=== PATIENT | male | born 1955 | race Caucasian/White ===

== ENCOUNTER 2016-12-26 13:12 | Inpatient (IN) | payer BC, OTHER ==
[~2016-12-26] VITALS: Ht 177.8 cm; Wt 115.9 kg
[~2016-12-26 13:12] MED LIST: ASPI-482 PO; ATOR10TA PO; CHOL100013 PO; FENO145T2 PO; LEVO500T59 PO; METR500T PO; OMEG10006 PO; TEMA15CA PO
[2016-12-26 14:01] LABS: BASO % 1 % (0-3); EOS % 2 % (0-3); HEMATOCRIT 48.5 % (39.0-53.0); HEMOGLOBIN 16.8 g/dL (13.0-17.5); LYMPH # 1.8 x10^3/uL (1.0-4.8); LYMPH % 34 % (24-48); MEAN CORPUSCULAR HEMOGLOBIN 33 pg (25-35); MEAN CORPUSCULAR HGB CONC 35 g/dL (31-37); MEAN CORPUSCULAR VOLUME 94 fL (79-100); MONO % 11 % (0-9); NEUT % 52 % (31-73); PLATELET COUNT 131 x10^3/uL (140-400); RED BLOOD COUNT 5.17 x10^6/uL (4.30-5.70); RED CELL DISTRIBUTION WIDTH 12.2 % (11.5-14.5); WHITE BLOOD COUNT 5.2 x10^3/uL (4.0-11.0)
--- NOTE | 2016-12-26 14:04 | RAD ---
Portable chest, 12/26/2016: History: High blood pressure, lightheadedness Comparison is made to a study from 10/09/2014. The heart size and pulmonary vascularity are normal. There is mild tortuosity of the thoracic aorta. A calcified granuloma is present in the right upper lobe. No acute infiltrates are seen. There is no evidence of pleural fluid. Mild spurring is present in the spine. IMPRESSION: No acute cardiopulmonary abnormality is detected.
[2016-12-26 14:13] LABS: CALCIUM 8.8 mg/dL (8.5-10.1); CREATININE 0.9 mg/dL (0.7-1.3); GFR 86.4
[2016-12-26 14:19] LABS: ALBUMIN/GLOBULIN RATIO 1.3 (1.0-1.7); TOTAL BILIRUBIN 0.7 mg/dL (0.2-1.0)
--- NOTE | 2016-12-26 14:46 | RAD ---
Head CT without contrast 12/26/2016 at 1405 hours Indication: Headache, hypertension Comparison: 02/19/[address] Technique: Multiple axial CT images of the head were obtained from the skull base through the vertex without intravenous contrast. Findings: The ventricles, sulci and basal cisterns are normal. Padilla-white matter differentiation is preserved. There is no mass, mass effect or midline shift. No evidence for acute intracranial hemorrhage. Senescent calcifications are noted in the basal ganglia bilaterally. Visualized orbits are normal. Calvarium and scalp appear normal. Paranasal sinuses and mastoid air cells are well aerated. Impression: No acute intracranial abnormalities identified. PQRS Compliance Statement: One or more of the following individualized dose reduction techniques were utilized for this examination: 1. Automated exposure control 2. Adjustment of the mA and/or kV according to patient size 3. Use of iterative reconstruction technique
[2016-12-26] MEDS ORDERED: ACETAMINOPHEN 325 MG TABLET. PO PRN (15:30)
[2016-12-26] MEDS ORDERED: NITROGLYCERIN SUBLINGUAL 0.4 MG BOTTLE OF 25. SL PRN (15:30)
[2016-12-26] MEDS ORDERED: ONDANSETRON PF 4 MG/2 ML VIAL. IV PRN (15:30)
--- NOTE | 2016-12-26 15:47 | EKG ---
[facility] [address] [place] [address] Test Date: 2016-12-26 Test Time: 13:17:19 Pat Name: RHEA OLGUIN Department: Room: Gender: M Rn Primary Care: : 1955 Requested By: ETHAN DUPONT Order Number: [id number] Reading MD: Estelita Sandoval Measurements Intervals [place] Rate: 84 P: 27 TN: 170 QRS: -32 QRSD: 94 T: 28 QT: 356 QTc: 424 Interpretive Statements SINUS RHYTHM NORMAL EKG Electronically Signed On 12-29-2016 21:26:01 CDT by Estelita Sandoval
[2016-12-26 16:08] LABS: BILIRUBIN,URINE NEGATIVE (NEG); GLUCOSE,URINE NEGATIVE (NEG); NITRITE,URINE NEGATIVE (NEG); PH,URINE 7.5; PROTEIN,URINE NEGATIVE (NEG-TRACE); UROBILINOGEN,URINE 0.2 mg/dL (0.2 mg/dL)
[2016-12-26 16:15] LABS: BARBITURATES NEG (NEG); BENZODIAZEPINES POS (NEG); CANNABINOIDS NEG (NEG); COCAINE NEG (NEG); METHADONE NEG (NEG); OPIATES NEG (NEG); PHENCYCLIDINE NEG (NEG)
[2016-12-26 16:19] LABS: BACTERIA,URINE 0 /HPF (0-FEW); RBC,URINE 0 /HPF (0-2); SQUAMOUS EPITHELIAL CELL,UR OCC /LPF; WBC,URINE 0 /HPF (0-4)
[2016-12-26 16:47] VITALS: BP 151/79
--- NOTE | 2016-12-26 17:36 | ED.ADGEN ---
Past Medical History Past Medical History: Anxiety, High Cholesterol Past Surgical History: Knee Replacement, Other Additional Past Surgical Histo: umbilical hernia Alcohol Use: Occasionally Drug Use: Other Social History Narrative: former Adult General Chief Complaint Chief Complaint: HYPERTENSION HPI HPI Patient is a 61 year old and, history of hypercholesterolemia, anxiety, bilateral knee replacements, who presents to the emergency department with a complaint of near syncope, associated with shortness of breath, and lightheadedness over the past several days. Patient denies any focal weakness, numbness or tingling, no vision changes, states that he felt as though he was "could've passed out", yesterday, has felt lightheaded and had some vertiginous type symptoms today. No ear pain, upper respiratory symptoms, states that he has not experienced palpitations or chest pain, but has experienced shooting pain in his left arm, associated with diaphoresis, and a feeling of shortness of breath associated with these other symptoms. Currently is not experiencing any symptoms. He denies any recent travel or surgery, history of DVT or PE, has not previously had cardiac evaluation. Patient states there is a family history of cardiac disease in his father and uncle. Patient states that he presented to an urgent care center today, and was sent to the ED for additional evaluation based on his complaints, and a blood pressure was elevated, 170s over 80s. Currently blood pressure is 170/91, heart rate is in the 80s, oxygen saturation is 99% on room air, respiratory rate is 20 and unlabored. Review of Systems Review of Systems Constitutional: Denies fever or chills. [] Eyes: Denies change in visual acuity. [] HENT: Denies nasal congestion or sore throat. [] Respiratory: Denies cough, complaining of shortness of breath associated with diaphoresis, and lightheadedness. Cardiovascular: Denies chest pain or edema. [] GI: Denies abdominal pain, nausea, vomiting, bloody stools or diarrhea. [] : Denies dysuria. [] Musculoskeletal: Denies back pain or joint pain, complaining of pain in left arm Integument: Denies rash. [] Neurologic: Denies headache, focal weakness or sensory changes. [] Endocrine: Denies polyuria or polydipsia. [] Lymphatic: Denies swollen glands. [] Psychiatric: Denies depression or anxiety. [] Allergies Allergies Allergies Coded Allergies Type Severity Reaction Last Updated Verified No Known Drug Allergies 04/16/14 No Physical Exam Physical Exam Constitutional: Well developed, well nourished, no acute distress, non-toxic appearance. [] HENT: Normocephalic, atraumatic, bilateral external ears normal, oropharynx moist, no oral exudates, nose normal. [] Eyes: PERRLA, EOMI, conjunctiva normal, no discharge. [] Neck: Normal range of motion, no tenderness, supple, no stridor. [] Cardiovascular:Heart rate regular rhythm, no murmur, S1, S2, no rubs or gallops. [] Lungs & Thorax: Bilateral breath sounds clear to auscultation, no wheezing, rhonchi, rales. No chest wall crepitus or tenderness. [] Abdomen: Bowel sounds normal, soft, no tenderness, no rebound, rigidity, no guarding, no masses, no pulsatile masses. [] Skin: Warm, dry, no erythema, no rash. [] Back: No tenderness, no CVA tenderness. [] Extremities: No tenderness, no cyanosis, no clubbing, ROM intact, no edema. Negative Homans sign. [] Neurologic: Alert and oriented X 3, normal motor function, normal sensory function, no focal deficits noted. [] Psychologic: Affect normal, judgement normal, mood normal. [] Current Patient Data Vital Signs Vital Signs Date Time Temp Pulse Resp B/P (MAP) Pulse Ox O2 Delivery O2 Flow Rate FiO2 12/26/16 14:00 80 20 182/83 (116) 97 Room Air 12/26/16 13:26 97.7 97.7 Lab Values Laboratory Tests Test 12/26/16 13:51 White Blood Count 5.2 x10^3/uL (4.0-11.0) Red Blood Count 5.17 x10^6/uL (4.30-5.70) Hemoglobin 16.8 g/dL (13.0-17.5) Hematocrit 48.5 % (39.0-53.0) Mean Corpuscular Volume 94 fL (79-100) Mean Corpuscular Hemoglobin 33 pg (25-35) Mean Corpuscular Hemoglobin Concent 35 g/dL (31-37) Red Cell Distribution Width 12.2 % (11.5-14.5) Platelet Count 131 x10^3/uL (140-400) L Neutrophils (%) (Auto) 52 % (31-73) Lymphocytes (%) (Auto) 34 % (24-48) Monocytes (%) (Auto) 11 % (0-9) H Eosinophils (%) (Auto) 2 % (0-3) Basophils (%) (Auto) 1 % (0-3) Neutrophils # (Auto) 2.7 x10^3uL (1.8-7.7) Lymphocytes # (Auto) 1.8 x10^3/uL (1.0-4.8) Monocytes # (Auto) 0.6 x10^3/uL (0.0-1.1) Eosinophils # (Auto) 0.1 x10^3/uL (0.0-0.7) Basophils # (Auto) 0.0 x10^3/uL (0.0-0.2) Sodium Level 140 mmol/L (136-145) Potassium Level 4.0 mmol/L (3.5-5.1) Chloride Level 103 mmol/L (98-107) Carbon Dioxide Level 26 mmol/L (21-32) Anion Gap 11 (6-14) Blood Urea Nitrogen 14 mg/dL (8-26) Creatinine 0.9 mg/dL (0.7-1.3) Estimated GFR (Cockcroft-Gault) 86.4 BUN/Creatinine Ratio 16 (6-20) Glucose Level 97 mg/dL (70-99) Calcium Level 8.8 mg/dL (8.5-10.1) Total Bilirubin 0.7 mg/dL (0.2-1.0) Aspartate Amino Transferase (AST) 36 U/L (15-37) Alanine Aminotransferase (ALT) 50 U/L (16-63) Alkaline Phosphatase 72 U/L (46-116) Troponin I Quantitative < 0.017 ng/mL (0.000-0.055) FL-Yno-D-Type Natriuretic Peptide 104 pg/mL (0-124) Total Protein 7.0 g/dL (6.4-8.2) Albumin 4.0 g/dL (3.4-5.0) Albumin/Globulin Ratio 1.3 (1.0-1.7) Laboratory Tests 12/26/16 13:51 Laboratory Tests 12/26/16 13:51 EKG EKG EC: Sinus rhythm, left axis deviation, QTC of 424, AL 170, QR is a 94, contour normality is noted in the inferior leads, no ST elevation or depression , mild baseline artifact noted. Abnormal ECG, does not meet STEMI criteria. As interpreted by me. [] Radiology/Procedures Radiology/Procedures [][facility] [address] [place] [address] IMAGING REPORT Signed PATIENT: RHEA OLGUIN ACCOUNT: [id number] : 1955 LOCATION: ER AGE: 61 SEX: M EXAM STATUS: REG ER ORD. PHYSICIAN: ETHAN DUPONT DO REASON: HTN PROCEDURE: PORTABLE CHEST 1V Portable chest, 12/26/2016: History: High blood pressure, lightheadedness Comparison is made to a study from 10/09/2014. The heart size and pulmonary vascularity are normal. There is mild tortuosity of the thoracic aorta. A calcified granuloma is present in the right upper lobe. No acute infiltrates are seen. There is no evidence of pleural fluid. Mild spurring is present in the spine. IMPRESSION: No acute cardiopulmonary abnormality is detected. DICTATED and SIGNED BY: LIZETTE MENCHACA MD DATE: 12/26/16 1401 CC: ETHAN DUPONT DO; CELESTINA THOMASON DO ~ Course & Med Decision Making Course & Med Decision Making Pertinent Labs and Imaging studies reviewed. (See chart for details) Patient with nonfocal neurologic examination, CT of the head obtained based on his complaints of disequilibrium, and lightheadedness. CT of the head was unremarkable, as was chest x-ray, ECG revealed contour normality is in the inferior leads, initial troponin was negative. I did discuss these findings and patient, was relieved. Blood pressure remains mildly elevated the emergency department, at this point is 150s over 80s. Patient denies any palpitations or other symptoms. Her main concern for possible atypical presentation of ACS. He is agreeable with plan for admission hospital for continued evaluation, findings as above discussed with Dr. Murray of internal medicine, patient accepted to her service as a full admission to the medical telemetry floor, with consultation placed for cardiology, bridge orders entered per discussion. Dragon Disclaimer Dragon Disclaimer This electronic medical record was generated, in whole or in part, using a voice recognition dictation system. Departure Impression: Primary Impression: Near syncope Disposition: 09 ADMITTED INPATIENT Admitting Physician: Other Condition: IMPROVED ETHAN DUPONT DO Dec 26, 2016 17:36
[2016-12-26] MEDS ORDERED: DIAZ10TA2 PO (18:31)
[2016-12-26] MEDS ORDERED: ATOR20TA58 PO (18:31)
[2016-12-26] MEDS ORDERED: TEMA30CA PO (18:31)
--- NOTE | 2016-12-26 19:26 | PDOC1 ---
History and Physical Date of Admission Date of Admission DATE: 12/26/16 TIME: 1700 Identification/Chief Complaint Chief Complaint Near syncope Hypertensive urgency Problems: Source Source: Patient History of Present Illness History of Present Illness Mr Toussaint is a 61 y/o man with minor medical problems, who presents to the ER with episodes feeling choked, unable to breath with associated near syncope/ lightheadedness over the past couple of days. He relates that she was close to passing out yesterday, and same symptoms occurred today. Patient denies any focal weakness, numbness or tingling, or vision changes, ear pain, or upper respiratory symptoms. He denies chest pain but pressure in his lower chest just left to the sternum as well as brief shooting pain in his left arm, associated with diaphoresis, along with the near syncopal episodes and SOB. Symptoms lasted only briefly, but general unwellness, "something wrong" is persisting. He denies any recent travel or surgery, history of DVT or PE, has not previously had cardiac evaluation. Patient states there is a family history of cardiac disease in his father and uncle. Has been diagnosed with anxiety and prior panic attacks, different from current events. Patient states that he presented to an urgent care center today, and was sent to the ED for additional evaluation based on his complaints, and a blood pressure was elevated, 170s over 80s. Currently blood pressure is 170/91, heart rate is in the 80s, oxygen saturation is 99% on room air, respiratory rate is 20 and unlabored. Past Medical History Cardiovascular: HTN, Hyperlipidemia GI: Diverticulosis Psych: Anxiety Musculoskeletal: Osteoarthritis (s/p bilat TKR) Past Surgical History Past Surgical History: Total knee replacement Family History Family History: No Significant Social History Smoke: Quit (30 yrs ago; 5 p/y hx) ALCOHOL: occassional Drugs: None Current Problem List Problem List Problems Medical Problems: (1) Near syncope Status: Acute Problems: Current Medications Current Medications Active Scripts Active Reported Valium (Diazepam) 10 Mg Tablet 10 Mg PO BID PRN Temazepam 30 Mg Capsule 30 Mg PO HS PRN Atorvastatin Calcium 20 Mg Tablet 20 Mg PO HS Pv Fish Oil 1,000 Mg Softgel ([place]-3 Fatty Acids/Vitamin E) 1,000 Mg Capsule 1 Cap PO BID Vitamin D (Cholecalciferol (Vitamin D3)) 1,000 Unit Capsule 1 Cap PO DAILY Aspir 81 (Aspirin) 81 Mg Tablet. 1 Tab PO DAILY Fenofibrate (Fenofibrate Nanocrystallized) 145 Mg Tablet 1 Tab PO DAILY Allergies Allergies: Coded Allergies: No Known Drug Allergies (Unverified , 04/16/14) ROS Review of System positive as per HPI. He denies symptoms in rest of organ system review Physical Exam General: Alert, Oriented X3, Cooperative, No acute distress HEENT: EOMI Lungs: Clear to auscultation Heart: RRR, no murmurs Abdomen: Normal bowel sounds, Soft, Other (massively obese) Extremities: No clubbing, No cyanosis, No edema Skin: No rashes Neuro: Normal speech Psych/Mental Status: Mood NL Vitals Vitals Vital Signs Date Time Temp Pulse Resp B/P (MAP) Pulse Ox O2 Delivery O2 Flow Rate FiO2 12/26/16 16:47 98.1 73 18 151/79 (103) 95 Room Air 98.1 Labs Labs Laboratory Tests Test 12/26/16 13:51 12/26/16 15:55 White Blood Count 5.2 x10^3/uL (4.0-11.0) Red Blood Count 5.17 x10^6/uL (4.30-5.70) Hemoglobin 16.8 g/dL (13.0-17.5) Hematocrit 48.5 % (39.0-53.0) Mean Corpuscular Volume 94 fL (79-100) Mean Corpuscular Hemoglobin 33 pg (25-35) Mean Corpuscular Hemoglobin Concent 35 g/dL (31-37) Red Cell Distribution Width 12.2 % (11.5-14.5) Platelet Count 131 x10^3/uL (140-400) Neutrophils (%) (Auto) 52 % (31-73) Lymphocytes (%) (Auto) 34 % (24-48) Monocytes (%) (Auto) 11 % (0-9) Eosinophils (%) (Auto) 2 % (0-3) Basophils (%) (Auto) 1 % (0-3) Neutrophils # (Auto) 2.7 x10^3uL (1.8-7.7) Lymphocytes # (Auto) 1.8 x10^3/uL (1.0-4.8) Monocytes # (Auto) 0.6 x10^3/uL (0.0-1.1) Eosinophils # (Auto) 0.1 x10^3/uL (0.0-0.7) Basophils # (Auto) 0.0 x10^3/uL (0.0-0.2) Sodium Level 140 mmol/L (136-145) Potassium Level 4.0 mmol/L (3.5-5.1) Chloride Level 103 mmol/L (98-107) Carbon Dioxide Level 26 mmol/L (21-32) Anion Gap 11 (6-14) Blood Urea Nitrogen 14 mg/dL (8-26) Creatinine 0.9 mg/dL (0.7-1.3) Estimated GFR (Cockcroft-Gault) 86.4 BUN/Creatinine Ratio 16 (6-20) Glucose Level 97 mg/dL (70-99) Calcium Level 8.8 mg/dL (8.5-10.1) Total Bilirubin 0.7 mg/dL (0.2-1.0) Aspartate Amino Transf (AST/SGOT) 36 U/L (15-37) Alanine Aminotransferase (ALT/SGPT) 50 U/L (16-63) Alkaline Phosphatase 72 U/L (46-116) Troponin I Quantitative < 0.017 ng/mL (0.000-0.055) QE-Fwl-K-Type Natriuretic Peptide 104 pg/mL (0-124) Total Protein 7.0 g/dL (6.4-8.2) Albumin 4.0 g/dL (3.4-5.0) Albumin/Globulin Ratio 1.3 (1.0-1.7) Urine Color Yellow Urine Clarity Clear Urine pH 7.5 Urine Specific [place] <=1.005 Urine Protein Negative mg/dL (NEG-TRACE) Urine Glucose (UA) Negative mg/dL (NEG) Urine Ketones (Stick) Negative mg/dL (NEG) Urine Blood Negative (NEG) Urine Nitrite Negative (NEG) Urine Bilirubin Negative (NEG) Urine Urobilinogen Dipstick 0.2 mg/dL (0.2 mg/dL) Urine Leukocyte Esterase Negative (NEG) Urine RBC 0 /HPF (0-2) Urine WBC 0 /HPF (0-4) Urine Squamous Epithelial Cells Occ /LPF Urine Bacteria 0 /HPF (0-FEW) Urine Opiates Screen Neg (NEG) Urine Methadone Screen Neg (NEG) Urine Barbiturates Neg (NEG) Urine Phencyclidine Screen Neg (NEG) Urine Amphetamine/Methamphetamine Neg (NEG) Urine Benzodiazepines Screen Pos (NEG) Urine Cocaine Screen Neg (NEG) Urine Cannabinoids Screen Neg (NEG) Urine Ethyl Alcohol Neg (NEG) Laboratory Tests Test 12/26/16 13:51 12/26/16 15:55 White Blood Count 5.2 x10^3/uL (4.0-11.0) Red Blood Count 5.17 x10^6/uL (4.30-5.70) Hemoglobin 16.8 g/dL (13.0-17.5) Hematocrit 48.5 % (39.0-53.0) Mean Corpuscular Volume 94 fL (79-100) Mean Corpuscular Hemoglobin 33 pg (25-35) Mean Corpuscular Hemoglobin Concent 35 g/dL (31-37) Red Cell Distribution Width 12.2 % (11.5-14.5) Platelet Count 131 x10^3/uL (140-400) Neutrophils (%) (Auto) 52 % (31-73) Lymphocytes (%) (Auto) 34 % (24-48) Monocytes (%) (Auto) 11 % (0-9) Eosinophils (%) (Auto) 2 % (0-3) Basophils (%) (Auto) 1 % (0-3) Neutrophils # (Auto) 2.7 x10^3uL (1.8-7.7) Lymphocytes # (Auto) 1.8 x10^3/uL (1.0-4.8) Monocytes # (Auto) 0.6 x10^3/uL (0.0-1.1) Eosinophils # (Auto) 0.1 x10^3/uL (0.0-0.7) Basophils # (Auto) 0.0 x10^3/uL (0.0-0.2) Sodium Level 140 mmol/L (136-145) Potassium Level 4.0 mmol/L (3.5-5.1) Chloride Level 103 mmol/L (98-107) Carbon Dioxide Level 26 mmol/L (21-32) Anion Gap 11 (6-14) Blood Urea Nitrogen 14 mg/dL (8-26) Creatinine 0.9 mg/dL (0.7-1.3) Estimated GFR (Cockcroft-Gault) 86.4 BUN/Creatinine Ratio 16 (6-20) Glucose Level 97 mg/dL (70-99) Calcium Level 8.8 mg/dL (8.5-10.1) Total Bilirubin 0.7 mg/dL (0.2-1.0) Aspartate Amino Transf (AST/SGOT) 36 U/L (15-37) Alanine Aminotransferase (ALT/SGPT) 50 U/L (16-63) Alkaline Phosphatase 72 U/L (46-116) Troponin I Quantitative < 0.017 ng/mL (0.000-0.055) ZM-Kfj-V-Type Natriuretic Peptide 104 pg/mL (0-124) Total Protein 7.0 g/dL (6.4-8.2) Albumin 4.0 g/dL (3.4-5.0) Albumin/Globulin Ratio 1.3 (1.0-1.7) Urine Color Yellow Urine Clarity Clear Urine pH 7.5 Urine Specific [place] <=1.005 Urine Protein Negative mg/dL (NEG-TRACE) Urine Glucose (UA) Negative mg/dL (NEG) Urine Ketones (Stick) Negative mg/dL (NEG) Urine Blood Negative (NEG) Urine Nitrite Negative (NEG) Urine Bilirubin Negative (NEG) Urine Urobilinogen Dipstick 0.2 mg/dL (0.2 mg/dL) Urine Leukocyte Esterase Negative (NEG) Urine RBC 0 /HPF (0-2) Urine WBC 0 /HPF (0-4) Urine Squamous Epithelial Cells Occ /LPF Urine Bacteria 0 /HPF (0-FEW) Urine Opiates Screen Neg (NEG) Urine Methadone Screen Neg (NEG) Urine Barbiturates Neg (NEG) Urine Phencyclidine Screen Neg (NEG) Urine Amphetamine/Methamphetamine Neg (NEG) Urine Benzodiazepines Screen Pos (NEG) Urine Cocaine Screen Neg (NEG) Urine Cannabinoids Screen Neg (NEG) Urine Ethyl Alcohol Neg (NEG) VTE Prophylaxis Ordered VTE Prophylaxis Devices: No VTE Pharmacological Prophylaxi: Yes Assessment/Plan Assessment/Plan Mr Toussaint is a 61 y/o with several cardiac risk factors who presents with vague symptoms reminiscent of ACS. In addition, his blood pressure today is significantly elevated, which is new for ma. He had been seen by his PCP just 2 weeks ago for annual physical and monitoring of his triglyceridemia, when BP was noted to be sl elevated at 130s/80s. He has been admitted to the [facility] for tele and serial enzymes. echo will be ordered. cardiology consult has been requested as well. For his hypertensive urgency, he will receive metoprolol bis plus hydralazine PRN. will continue his home medications for now. Prophylaxis will be achieved with lovenox and H2 Teagan. ALINA WOODY MD Dec 26, 2016 19:26
[2016-12-26] MEDS ORDERED: TEMAZEPAM 15 MG CAPSULE PO PRN (19:30)
[2016-12-26] MEDS ORDERED: diazePAM 5 MG TABLET PO PRN (19:30)
[2016-12-26] MEDS ORDERED: hydrALAZINE 20 MG/ML VIAL. IVP PRN (19:30)
[2016-12-26 19:59] VITALS: BP 166/92
[2016-12-26] MEDS: OMEGA-3 FATTY ACIDS/FISH OIL 1,000 MG CAPSULE. PO SCH (21:46)
[2016-12-26] MEDS: ATORVASTATIN CALCIUM 20 MG TABLET PO SCH (21:46)
[2016-12-26] MEDS: METOPROLOL TART IMMED RELEASE 25 MG TABLET. PO SCH (21:48)
[2016-12-26] MEDS: ENOXAPARIN 40 MG/0.4 ML SYRINGE. SQ SCH (21:49)
[2016-12-26] MEDS: FAMOTIDINE 20 MG TABLET. PO SCH (21:49)
[2016-12-26 23:10] VITALS: BP 133/83
--- NOTE | 2016-12-26 23:38 | ACF ---
Admission Forms Criteria SYNCOPE Clinical Indications for Admission to Inpatient Care ( Place 'X' for any and all applicable criteria): Admission is indicated for syncope and ANY ONE of the following (1)(2)(3)(4)(5) (6)(7) : [X]I. Inpatient admission required rather than observation care (Also use Syncope: Observation Care Criteria as appropriate) because of ANY ONE of the following: [ ]a) Hemodynamic instability that is severe or persistent [ ]b) Cardiac arrhythmias of immediate concern identified or strongly suspected (eg, needs electrophysiologic study) [ ]c) Acute coronary syndrome identified (Also use Myocardial Infarction or Angina Criteria form ) [ ]d) Structural cardiac disorder (eg, aortic stenosis) suspected as cause that requires immediate correction [ ]e) Respiratory symptoms (eg, dyspnea, tachypnea) that are severe or persistent [ ]f) Neurologic signs or symptoms that are severe or persistent ( eg, stroke, seizures, altered mental status) [ ]g) Severe electrolyte abnormalities requiring inpatient care [ ]h) Supplemental oxygen or respiratory treatment for over 24 hrs that are performable only in acute inpatient setting [ ]i) IV fluid to replace significant ongoing (eg, for over 24 hrs ) losses (>3 L/m2 per day) [ ]j) Continuous intravenous infusion of anticoagulation, platelet inhibitor, vasoactive, or antiarrhythmic medication(15)(16) [ ]k) Pulmonary artery catheter monitoring [ ]l) Temporary pacemaker placement(17) [ ]m) Emergent cardioversion(18) [X]n) Other conditions, treatment or monitoring requiring inpatient admission [ ]II. Suspicion of imminently dangerous cause (eg, rare causes like pericardial tamponade, pulmonary embolism) [ ]III. Syncope causing severe injury requiring hospitalization Extended stay beyond goal length of stay may be needed for(28) [ ]a) Dangerous arrhythmia(15)(23)(27)(29) [ ]b) Myocardial ischemia [ ]c) Seizure disorder [ ]d) Syncope-related injuries The original [employer] content created by [email or web address] has been revised. The portions of the content which have been revised are identified through the use of italic text or in bold, and [employer] has neither reviewed nor approved the modified material. All other unmodified content is copyright [employer]. Please see references footnoted in the original [facility] edition 2016 Admission Criteria Met?: Yes MASOUD AMARO Dec 26, 2016 23:38
[2016-12-27] VITALS (7 sets, daily range): BP systolic 125–149; BP diastolic 79–85
[2016-12-27 01:10] LABS: BASO % 1 % (0-3); EOS % 3 % (0-3); HEMOGLOBIN 16.1 g/dL (13.0-17.5); LYMPH # 1.9 x10^3/uL (1.0-4.8); LYMPH % 38 % (24-48); MEAN CORPUSCULAR HEMOGLOBIN 33 pg (25-35); MEAN CORPUSCULAR HGB CONC 34 g/dL (31-37); MEAN CORPUSCULAR VOLUME 95 fL (79-100); MONO % 11 % (0-9); NEUT % 47 % (31-73); PLATELET COUNT 125 x10^3/uL (140-400); RED BLOOD COUNT 4.96 x10^6/uL (4.30-5.70); RED CELL DISTRIBUTION WIDTH 11.9 % (11.5-14.5)
[2016-12-27 01:23] LABS: CALCIUM 8.3 mg/dL (8.5-10.1); GFR 76.5; POTASSIUM 4.1 mmol/L (3.5-5.1)
--- NOTE | 2016-12-27 09:42 | PDOC2 ---
CARDIAC CONSULT DATE OF CONSULT Date of Consult DATE: 12/27/16 TIME: 09:10 REASON FOR CONSULT Reason for Consult: near syncope REFERRING PHYSICIAN Referring Physician: Cydney SOURCE Source: Chart review, Patient HISTORY OF PRESENT ILLNESS HISTORY OF PRESENT ILLNESS This is a pleasant 61 yo male admitted for complains of dizziness. Reports that in the last few weeks he has been having mild SOA with exertion as well as intermittent feeling of indigestion. 2 days ago while walking he started having some dizziness and Monday almost passing out. He was also having some sensation of vertigo. With this symptoms he started having SOA, diaphoresis. Also having dull achy midsternal CP and also shooting discomfort to his left arm. Also has been having sensation of brief palpitations. Verbalized adequate hydration. Denies any CAD, VTE, recent long distant travels, arrhythmia , CVA, syncope. He has HLP, no antiHTN. No recreational drug use and no tobaccoism. Significant family hx of premature CAD. PAST MEDICAL HISTORY Cardiovascular: Hyperlipidemia Pulmonary: No pertinent hx CENTRAL NERVOUS SYSTEM: Vertigo (Had intermittent in the last 6 months) GI: No pertinent hx Heme/Onc: No pertinent hx Hepatobiliary: No pertinent hx Psych: Anxiety (with intermittent use of beznzodiazepine) Musculoskeletal: Osteoarthritis Rheumatologic: No pertinent hx Infectious disease: No pertinent hx ENT: No pertinent hx Renal/: No pertinent hx Endocrine: No pertinent hx Dermatology: No pertinent hx PAST SURGICAL HISTORY Past Surgical History: Hernia Repair (umbilical), Total knee replacement ( bilateral knee 4 yrs ago preceded by unremarkable stress test per pt. ) FAMILY HISTORY Family History: Coronary Artery Disease (father at 51 and uncle with SCD at 51) SOCIAL HISTORY Smoke: No ALCOHOL: occassional Drugs: None Lives: with Family CURRENT MEDICATIONS CURRENT MEDICATIONS Current Medications Medications (Trade) Dose Ordered Sig/Judy Route PRN Reason Start Time Stop Time Status Last Admin Dose Admin Acetaminophen (Tylenol) 650 mg PRN Q4HRS PRN PO FEVER 12/26/16 15:30 12/27/16 15:29 12/26/16 21:56 Atorvastatin Calcium (Lipitor) 20 mg HS PO 12/26/16 21:00 12/26/16 21:46 Fish Oil (Fish Oil) 1,000 mg BID PO 12/26/16 21:00 12/26/16 21:46 Metoprolol Tartrate (Lopressor) 12.5 mg BID PO 12/26/16 21:00 12/26/16 21:48 Enoxaparin Sodium (Lovenox 40mg Syringe) 40 mg Q24H SQ 12/26/16 21:00 12/26/16 21:49 Famotidine (Pepcid) 20 mg BID PO 12/26/16 21:00 12/26/16 21:49 ALLERGIES ALLERGIES: Coded Allergies: No Known Drug Allergies (Unverified , 04/16/14) ROS Review of System 14 point ROS evaluated with pertinent positives noted per HPI PHYSICAL EXAM General: Alert, Oriented X3, Cooperative, No acute distress HEENT: Atraumatic, Mucous membr. moist/pink Lungs: Clear to auscultation, Normal air movement Heart: Regular rate (SR), Normal S1, Normal S2, Other (VICKI 2/6 systolic murmur) Abdomen: Soft, No tenderness, Other (truncal obseity) Extremities: No cyanosis, No edema Skin: No breakdown, No significant lesion Neuro: Normal speech, Sensation intact Psych/Mental Status: Mental status NL, Mood NL MUSCULOSKELETAL: Osteoarthritic changes both hands VITALS VITALS Vital Signs Date Time Temp Pulse Resp B/P (MAP) Pulse Ox O2 Delivery O2 Flow Rate FiO2 12/27/16 08:46 75 138/79 (98) 12/27/16 07:00 97.8 18 98 Room Air 97.8 LABS Lab: Laboratory Tests Test 12/26/16 13:51 12/26/16 15:55 12/26/16 19:00 12/27/16 01:00 White Blood Count 5.2 x10^3/uL (4.0-11.0) 5.0 x10^3/uL (4.0-11.0) Red Blood Count 5.17 x10^6/uL (4.30-5.70) 4.96 x10^6/uL (4.30-5.70) Hemoglobin 16.8 g/dL (13.0-17.5) 16.1 g/dL (13.0-17.5) Hematocrit 48.5 % (39.0-53.0) 47.0 % (39.0-53.0) Mean Corpuscular Volume 94 fL (79-100) 95 fL (79-100) Mean Corpuscular Hemoglobin 33 pg (25-35) 33 pg (25-35) Mean Corpuscular Hemoglobin Concent 35 g/dL (31-37) 34 g/dL (31-37) Red Cell Distribution Width 12.2 % (11.5-14.5) 11.9 % (11.5-14.5) Platelet Count 131 x10^3/uL (140-400) 125 x10^3/uL (140-400) Neutrophils (%) (Auto) 52 % (31-73) 47 % (31-73) Lymphocytes (%) (Auto) 34 % (24-48) 38 % (24-48) Monocytes (%) (Auto) 11 % (0-9) 11 % (0-9) Eosinophils (%) (Auto) 2 % (0-3) 3 % (0-3) Basophils (%) (Auto) 1 % (0-3) 1 % (0-3) Neutrophils # (Auto) 2.7 x10^3uL (1.8-7.7) 2.4 x10^3uL (1.8-7.7) Lymphocytes # (Auto) 1.8 x10^3/uL (1.0-4.8) 1.9 x10^3/uL (1.0-4.8) Monocytes # (Auto) 0.6 x10^3/uL (0.0-1.1) 0.6 x10^3/uL (0.0-1.1) Eosinophils # (Auto) 0.1 x10^3/uL (0.0-0.7) 0.1 x10^3/uL (0.0-0.7) Basophils # (Auto) 0.0 x10^3/uL (0.0-0.2) 0.0 x10^3/uL (0.0-0.2) Sodium Level 140 mmol/L (136-145) 138 mmol/L (136-145) Potassium Level 4.0 mmol/L (3.5-5.1) 4.1 mmol/L (3.5-5.1) Chloride Level 103 mmol/L (98-107) 103 mmol/L (98-107) Carbon Dioxide Level 26 mmol/L (21-32) 30 mmol/L (21-32) Anion Gap 11 (6-14) 5 (6-14) Blood Urea Nitrogen 14 mg/dL (8-26) 15 mg/dL (8-26) Creatinine 0.9 mg/dL (0.7-1.3) 1.0 mg/dL (0.7-1.3) Estimated GFR (Cockcroft-Gault) 86.4 76.5 BUN/Creatinine Ratio 16 (6-20) Glucose Level 97 mg/dL (70-99) 99 mg/dL (70-99) Calcium Level 8.8 mg/dL (8.5-10.1) 8.3 mg/dL (8.5-10.1) Total Bilirubin 0.7 mg/dL (0.2-1.0) Aspartate Amino Transf (AST/SGOT) 36 U/L (15-37) Alanine Aminotransferase (ALT/SGPT) 50 U/L (16-63) Alkaline Phosphatase 72 U/L (46-116) Troponin I Quantitative < 0.017 ng/mL (0.000-0.055) < 0.017 ng/mL (0.000-0.055) < 0.017 ng/mL (0.000-0.055) PP-Yvl-Q-Type Natriuretic Peptide 104 pg/mL (0-124) Total Protein 7.0 g/dL (6.4-8.2) Albumin 4.0 g/dL (3.4-5.0) Albumin/Globulin Ratio 1.3 (1.0-1.7) Urine Color Yellow Urine Clarity Clear Urine pH 7.5 Urine Specific [place] <=1.005 Urine Protein Negative mg/dL (NEG-TRACE) Urine Glucose (UA) Negative mg/dL (NEG) Urine Ketones (Stick) Negative mg/dL (NEG) Urine Blood Negative (NEG) Urine Nitrite Negative (NEG) Urine Bilirubin Negative (NEG) Urine Urobilinogen Dipstick 0.2 mg/dL (0.2 mg/dL) Urine Leukocyte Esterase Negative (NEG) Urine RBC 0 /HPF (0-2) Urine WBC 0 /HPF (0-4) Urine Squamous Epithelial Cells Occ /LPF Urine Bacteria 0 /HPF (0-FEW) Urine Opiates Screen Neg (NEG) Urine Methadone Screen Neg (NEG) Urine Barbiturates Neg (NEG) Urine Phencyclidine Screen Neg (NEG) Urine Amphetamine/Methamphetamine Neg (NEG) Urine Benzodiazepines Screen Pos (NEG) Urine Cocaine Screen Neg (NEG) Urine Cannabinoids Screen Neg (NEG) Urine Ethyl Alcohol Neg (NEG) ASSESSMENT/PLAN ASSESSMENT/PLAN 1. Atypical CP/Dizziness 2. Tachyarrhythmia: possible PSVT 3. HTN: new 4. HLP 5. Obesity 6. Family hx of premature CAD Recommendations 1. TTE, MPI today 2. Lipid panel and TSH 3. If MPI unremarkable then will plan for outpt event monitor. 4. Continue current inpt.med regimen. Problems: DANUTA PARK [employer] Dec 27, 2016 09:42
[2016-12-27 09:55] LABS: CHOLESTEROL/HDL RATIO 3.3
[2016-12-27] MEDS ORDERED: REGADENOSON 0.4 MG/5 ML DISP.SYRIN. IV ONE (10:15)
[2016-12-27] MEDS: METOPROLOL TART IMMED RELEASE 25 MG TABLET. PO SCH ×2 (13:10→21:37)
[2016-12-27] MEDS: FENOFIBRATE,MICRONIZED 134 MG CAPSULE PO SCH (13:10)
[2016-12-27] MEDS: OMEGA-3 FATTY ACIDS/FISH OIL 1,000 MG CAPSULE. PO SCH ×2 (13:10→21:37)
[2016-12-27] MEDS: ASPIRIN ENTERIC COATED 81 MG TABLET.DR. PO SCH (13:11)
[2016-12-27] MEDS: FAMOTIDINE 20 MG TABLET. PO SCH ×2 (13:11→21:38)
[2016-12-27] MEDS: CHOLECALCIFEROL (VITAMIN D3) 1,000 UNIT TABLET PO SCH (13:14)
[2016-12-27] MEDS ORDERED: METO25TA4 PO (16:06)
--- NOTE | 2016-12-27 16:07 | PDOC3 ---
Discharge Summary* Date of Admission: Dec 26, 2016 Date of Discharge: Dec 27, 2016 Admitting Diagnosis Near syncope Problems: Final Diagnosis Near syncope Hypertensive urgency CONSULTS Cardiology Procedures MPI Brief Hospital Course Mr Toussaint is a 61 y/o man with minor medical problems, who presents to the ER with episodes feeling choked, unable to breath with associated near syncope/ lightheadedness over the past couple of days. He relates that she was close to passing out yesterday, and same symptoms occurred today. Patient denies any focal weakness, numbness or tingling, or vision changes, ear pain, or upper respiratory symptoms. He denies chest pain but pressure in his lower chest just left to the sternum as well as brief shooting pain in his left arm, associated with diaphoresis, along with the near syncopal episodes and SOB. Symptoms lasted only briefly, but general unwellness, "something wrong" is persisting. He denies any recent travel or surgery, history of DVT or PE, has not previously had cardiac evaluation. Patient states there is a family history of cardiac disease in his father and uncle. Has been diagnosed with anxiety and prior panic attacks, different from current events. Patient states that he presented to an urgent care center today, and was sent to the ED for additional evaluation based on his complaints, and a blood pressure was elevated, 170s over 80s. Currently blood pressure is 170/91, heart rate is in the 80s, oxygen saturation is 99% on room air, respiratory rate is 20 and unlabored. He was admitted for further observation and work up. ACS was ruled out with serial enzymes and tele. He underwent echo as well as MPI on 12/27 Disposition/Orders: D/C to Home CONDITION AT DISCHARGE: Improved Diet: Cardiac Scheduled Aspirin (Aspir 81), 1 TAB PO DAILY, (Reported) Atorvastatin Calcium (Atorvastatin Calcium), 20 MG PO HS, (Reported) Cholecalciferol (Vitamin D3) (Vitamin D), 1 CAP PO DAILY, (Reported) Fenofibrate Nanocrystallized (Fenofibrate), 1 TAB PO DAILY, (Reported) [place]-3 Fatty Acids/Vitamin E (Pv Fish Oil 1,000 Mg Softgel), 1 CAP PO BID, ( Reported) Scheduled PRN Diazepam (Valium), 10 MG PO BID PRN for ANXIETY / AGITATION, (Reported) Temazepam (Temazepam), 30 MG PO HS PRN for INSOMNIA, (Reported) Discontinued Medications Atorvastatin Calcium (Lipitor), 1 TAB PO QHS, (Reported) Discontinued Reason: Prescription changed Temazepam (Temazepam), 1 CAP PO QHS, (Reported) Discontinued Reason: Prescription changed FOLLOW UP APPOINTMENT: cardiology in 1 month Time Spent Total time spent with patient [] minutes for coordination of care, counseling, and education. ALINA WOODY MD Dec 27, 2016 16:07
--- NOTE | 2016-12-27 16:45 | RAD ---
APPROVED REPORT Test Type: Pharmacological Stress Nurse/Tech: Millie Gutierrez R.N. Test Indications: dizziness, chest discomfort Cardiac History: htn, Medications: see ehr Medical History: see ehr Resting ECG: sr Resting Heart Rate: 82 bpm Resting Blood Pressure: 153/75mmHg Pretest Chest Pain: No chest pain Nurse/Tech Notes lungs cta, heart tones regular Consent: The procedure was explained to the patient in lay terms. Informed consent was witnessed. Philip eout was entered into [facility]. History and Stress Test performed by Millie Gutierrez R.N. Pharm. Details Pharmacologic stress testing was performed using 0.4mg per 5ml of regadenoson given intravenously ove r 7-10 seconds. Stress Symptoms No chest pain or symptoms. POST EXERCISE Reason for Termination: Infusion complete Target HR: No Max HR: 100 bpm Max Blood Pressure: 156/75mmHg Chest Pain: No. Arrhythmia: Yes. pvc ST Change: No. INTERPRETATION Stress EKG Conclusion: No evidence of stress induced ekg changes with prior inferior infarct on resti ng EKG. Imaging Protocol IMAGE PROTOCOL: Rest Tc-99m/stress Tc-99m 1 day Rest: Stress: Viability: Radiopharm.Tc99m [id number] Sestamibi Dose10.45mCi 33mCi Duration 15min. 10min. Img Date 12/27/2016 12/27/2016 Inj-Img [id number]. 90min. STRESS DATA End Diast. Vol.181.0mlAv. Heart Rate87.0bpm End Syst. Vol.78.0mlCO Index BSA0.0L/min Myocardial Cwvf843.0gEject. Yrgahwzk11.0% Stress Rates Pk. Fill Rate2.50EDV/secLVtime Pk. Fill 131.30msec Pk. Empty Rate3.99ESV/secLVtime Pk. Hygoz367.25msec 06/21 Pk. Fill1.38EDV/sec Stress Scores Regional WT1.00Summed WT17.00 Regional WM0.00Summed WM1.00 LV Perfusion Cannot rule out prior basal inferior wall infarct. No evidence of ischemia or reversible defect noted . Wall Motion Low normal EF at 55% with mild inferior wall hypokinesis. LV Perf. Quant 17 Seg. SSS1.00 17 Seg. SRS0.00 17 Seg. SDS1.00 Stress Defect Extent (% LAD)0.00Rest Defect Extent (% LAD)0.00Rev. Defect Extent (% LAD)0.00 Stress Defect Extent (% LCX) 17.50Rest Defect Extent (% LCX)6.30Rev. Defect Extent (% LCX)0.00 Stress Defect Extent (% RCA)0.00Rest Defect Extent (% RCA)0.00Rev. Defect Extent (% RCA)0.00 Stress Defect Extent (% EMANUEL)3.00Rest Defect Extent (% EMANUEL)1.10Rev. Defect Extent (% EMANUEL)0.00 Other Information Quality:Average Risk Assessment: Moderate Risk Conclusion 1. No evidence of stress induced EKG changes. Baseline EKG with prior inferior infarct pattern. 2. Normal perfusion at stress/rest but cannot rule out prior basal inferior wall infarct. No ischemia or reversible lesions noted. 3. Low normal EF at 55% with mild inferior wall hypokinesis. 4. Moderate risk study.
--- NOTE | 2016-12-27 17:33 | PDOC ---
PROGRESS NOTES Chief Complaint Chief Complaint Near syncope ASSESSMENT AND PLAN: 1. CP/ near syncope: ruled out for ACS. MPI with EF 55%, mild inferior hypokinesis. echo, however, has valvular abnormalities per verbal report. planned NAYANA in AM 2. HTN urgency: well controlled on lisinopril and HCTZ as per cards. monitor. 3. Prophylaxis: lovenox, H2B History of Present Illness History of Present Illness feels good post stress test, no further pressure, SOB, faintness Vitals Vitals Vital Signs Date Time Temp Pulse Resp B/P (MAP) Pulse Ox O2 Delivery O2 Flow Rate FiO2 12/27/16 15:00 98.2 86 20 125/79 (94) 95 Room Air 98.2 Physical Exam General: Alert, Oriented X3, Cooperative, No acute distress Heart: Regular rate, Other (VICKI 2/6 systolic murmur) Lungs: Clear Abdomen: Normal bowel sounds, Soft, No tenderness, Other (massively obese) Extremities: No edema Skin: No rashes Labs LABS Laboratory Tests Test 12/26/16 19:00 12/27/16 01:00 Troponin I Quantitative < 0.017 ng/mL (0.000-0.055) < 0.017 ng/mL (0.000-0.055) White Blood Count 5.0 x10^3/uL (4.0-11.0) Red Blood Count 4.96 x10^6/uL (4.30-5.70) Hemoglobin 16.1 g/dL (13.0-17.5) Hematocrit 47.0 % (39.0-53.0) Mean Corpuscular Volume 95 fL (79-100) Mean Corpuscular Hemoglobin 33 pg (25-35) Mean Corpuscular Hemoglobin Concent 34 g/dL (31-37) Red Cell Distribution Width 11.9 % (11.5-14.5) Platelet Count 125 x10^3/uL (140-400) Neutrophils (%) (Auto) 47 % (31-73) Lymphocytes (%) (Auto) 38 % (24-48) Monocytes (%) (Auto) 11 % (0-9) Eosinophils (%) (Auto) 3 % (0-3) Basophils (%) (Auto) 1 % (0-3) Neutrophils # (Auto) 2.4 x10^3uL (1.8-7.7) Lymphocytes # (Auto) 1.9 x10^3/uL (1.0-4.8) Monocytes # (Auto) 0.6 x10^3/uL (0.0-1.1) Eosinophils # (Auto) 0.1 x10^3/uL (0.0-0.7) Basophils # (Auto) 0.0 x10^3/uL (0.0-0.2) Sodium Level 138 mmol/L (136-145) Potassium Level 4.1 mmol/L (3.5-5.1) Chloride Level 103 mmol/L (98-107) Carbon Dioxide Level 30 mmol/L (21-32) Anion Gap 5 (6-14) Blood Urea Nitrogen 15 mg/dL (8-26) Creatinine 1.0 mg/dL (0.7-1.3) Estimated GFR (Cockcroft-Gault) 76.5 Glucose Level 99 mg/dL (70-99) Calcium Level 8.3 mg/dL (8.5-10.1) Triglycerides Level 344 mg/dL (0-150) Cholesterol Level 145 mg/dL (0-200) LDL Cholesterol, Calculated 32 mg/dL (0-100) VLDL Cholesterol, Calculated 69 mg/dL (0-40) Non-HDL Cholesterol Calculated 101 mg/dL (0-129) HDL Cholesterol 44 mg/dL (40-60) Cholesterol/HDL Ratio 3.3 Thyroid Stimulating Hormone (TSH) 4.353 uIU/mL (0.358-3.74) Comment Review of Relevant I have reviewed the following items meir (where applicable) has been applied. Labs Laboratory Tests Test 12/26/16 13:51 12/26/16 15:55 12/26/16 19:00 12/27/16 01:00 White Blood Count 5.2 x10^3/uL (4.0-11.0) 5.0 x10^3/uL (4.0-11.0) Red Blood Count 5.17 x10^6/uL (4.30-5.70) 4.96 x10^6/uL (4.30-5.70) Hemoglobin 16.8 g/dL (13.0-17.5) 16.1 g/dL (13.0-17.5) Hematocrit 48.5 % (39.0-53.0) 47.0 % (39.0-53.0) Mean Corpuscular Volume 94 fL (79-100) 95 fL (79-100) Mean Corpuscular Hemoglobin 33 pg (25-35) 33 pg (25-35) Mean Corpuscular Hemoglobin Concent 35 g/dL (31-37) 34 g/dL (31-37) Red Cell Distribution Width 12.2 % (11.5-14.5) 11.9 % (11.5-14.5) Platelet Count 131 x10^3/uL (140-400) 125 x10^3/uL (140-400) Neutrophils (%) (Auto) 52 % (31-73) 47 % (31-73) Lymphocytes (%) (Auto) 34 % (24-48) 38 % (24-48) Monocytes (%) (Auto) 11 % (0-9) 11 % (0-9) Eosinophils (%) (Auto) 2 % (0-3) 3 % (0-3) Basophils (%) (Auto) 1 % (0-3) 1 % (0-3) Neutrophils # (Auto) 2.7 x10^3uL (1.8-7.7) 2.4 x10^3uL (1.8-7.7) Lymphocytes # (Auto) 1.8 x10^3/uL (1.0-4.8) 1.9 x10^3/uL (1.0-4.8) Monocytes # (Auto) 0.6 x10^3/uL (0.0-1.1) 0.6 x10^3/uL (0.0-1.1) Eosinophils # (Auto) 0.1 x10^3/uL (0.0-0.7) 0.1 x10^3/uL (0.0-0.7) Basophils # (Auto) 0.0 x10^3/uL (0.0-0.2) 0.0 x10^3/uL (0.0-0.2) Sodium Level 140 mmol/L (136-145) 138 mmol/L (136-145) Potassium Level 4.0 mmol/L (3.5-5.1) 4.1 mmol/L (3.5-5.1) Chloride Level 103 mmol/L (98-107) 103 mmol/L (98-107) Carbon Dioxide Level 26 mmol/L (21-32) 30 mmol/L (21-32) Anion Gap 11 (6-14) 5 (6-14) Blood Urea Nitrogen 14 mg/dL (8-26) 15 mg/dL (8-26) Creatinine 0.9 mg/dL (0.7-1.3) 1.0 mg/dL (0.7-1.3) Estimated GFR (Cockcroft-Gault) 86.4 76.5 BUN/Creatinine Ratio 16 (6-20) Glucose Level 97 mg/dL (70-99) 99 mg/dL (70-99) Calcium Level 8.8 mg/dL (8.5-10.1) 8.3 mg/dL (8.5-10.1) Total Bilirubin 0.7 mg/dL (0.2-1.0) Aspartate Amino Transf (AST/SGOT) 36 U/L (15-37) Alanine Aminotransferase (ALT/SGPT) 50 U/L (16-63) Alkaline Phosphatase 72 U/L (46-116) Troponin I Quantitative < 0.017 ng/mL (0.000-0.055) < 0.017 ng/mL (0.000-0.055) < 0.017 ng/mL (0.000-0.055) AC-Tds-T-Type Natriuretic Peptide 104 pg/mL (0-124) Total Protein 7.0 g/dL (6.4-8.2) Albumin 4.0 g/dL (3.4-5.0) Albumin/Globulin Ratio 1.3 (1.0-1.7) Urine Color Yellow Urine Clarity Clear Urine pH 7.5 Urine Specific [place] <=1.005 Urine Protein Negative mg/dL (NEG-TRACE) Urine Glucose (UA) Negative mg/dL (NEG) Urine Ketones (Stick) Negative mg/dL (NEG) Urine Blood Negative (NEG) Urine Nitrite Negative (NEG) Urine Bilirubin Negative (NEG) Urine Urobilinogen Dipstick 0.2 mg/dL (0.2 mg/dL) Urine Leukocyte Esterase Negative (NEG) Urine RBC 0 /HPF (0-2) Urine WBC 0 /HPF (0-4) Urine Squamous Epithelial Cells Occ /LPF Urine Bacteria 0 /HPF (0-FEW) Urine Opiates Screen Neg (NEG) Urine Methadone Screen Neg (NEG) Urine Barbiturates Neg (NEG) Urine Phencyclidine Screen Neg (NEG) Urine Amphetamine/Methamphetamine Neg (NEG) Urine Benzodiazepines Screen Pos (NEG) Urine Cocaine Screen Neg (NEG) Urine Cannabinoids Screen Neg (NEG) Urine Ethyl Alcohol Neg (NEG) Triglycerides Level 344 mg/dL (0-150) Cholesterol Level 145 mg/dL (0-200) LDL Cholesterol, Calculated 32 mg/dL (0-100) VLDL Cholesterol, Calculated 69 mg/dL (0-40) Non-HDL Cholesterol Calculated 101 mg/dL (0-129) HDL Cholesterol 44 mg/dL (40-60) Cholesterol/HDL Ratio 3.3 Thyroid Stimulating Hormone (TSH) 4.353 uIU/mL (0.358-3.74) Laboratory Tests Test 12/26/16 19:00 12/27/16 01:00 Troponin I Quantitative < 0.017 ng/mL (0.000-0.055) < 0.017 ng/mL (0.000-0.055) White Blood Count 5.0 x10^3/uL (4.0-11.0) Red Blood Count 4.96 x10^6/uL (4.30-5.70) Hemoglobin 16.1 g/dL (13.0-17.5) Hematocrit 47.0 % (39.0-53.0) Mean Corpuscular Volume 95 fL (79-100) Mean Corpuscular Hemoglobin 33 pg (25-35) Mean Corpuscular Hemoglobin Concent 34 g/dL (31-37) Red Cell Distribution Width 11.9 % (11.5-14.5) Platelet Count 125 x10^3/uL (140-400) Neutrophils (%) (Auto) 47 % (31-73) Lymphocytes (%) (Auto) 38 % (24-48) Monocytes (%) (Auto) 11 % (0-9) Eosinophils (%) (Auto) 3 % (0-3) Basophils (%) (Auto) 1 % (0-3) Neutrophils # (Auto) 2.4 x10^3uL (1.8-7.7) Lymphocytes # (Auto) 1.9 x10^3/uL (1.0-4.8) Monocytes # (Auto) 0.6 x10^3/uL (0.0-1.1) Eosinophils # (Auto) 0.1 x10^3/uL (0.0-0.7) Basophils # (Auto) 0.0 x10^3/uL (0.0-0.2) Sodium Level 138 mmol/L (136-145) Potassium Level 4.1 mmol/L (3.5-5.1) Chloride Level 103 mmol/L (98-107) Carbon Dioxide Level 30 mmol/L (21-32) Anion Gap 5 (6-14) Blood Urea Nitrogen 15 mg/dL (8-26) Creatinine 1.0 mg/dL (0.7-1.3) Estimated GFR (Cockcroft-Gault) 76.5 Glucose Level 99 mg/dL (70-99) Calcium Level 8.3 mg/dL (8.5-10.1) Triglycerides Level 344 mg/dL (0-150) Cholesterol Level 145 mg/dL (0-200) LDL Cholesterol, Calculated 32 mg/dL (0-100) VLDL Cholesterol, Calculated 69 mg/dL (0-40) Non-HDL Cholesterol Calculated 101 mg/dL (0-129) HDL Cholesterol 44 mg/dL (40-60) Cholesterol/HDL Ratio 3.3 Thyroid Stimulating Hormone (TSH) 4.353 uIU/mL (0.358-3.74) Medications Current Medications Ondansetron HCl (Zofran) 4 mg PRN Q8HRS PRN IV NAUSEA/VOMITING; Start 12/26/16 at 15:30; Stop 12/27/16 at 15:29; Status DC Acetaminophen (Tylenol) 650 mg PRN Q4HRS PRN PO FEVER Last administered on 12/26 21:56; Start 12/26/16 at 15:30; Stop 12/27/16 at 15:29; Status DC Nitroglycerin (Nitrostat) 0.4 mg PRN Q5MIN PRN SL CHEST PAIN; Start 12/26/16 at 15:30; Stop 12/27/16 at 15:29; Status DC Aspirin (Ecotrin) 81 mg DAILYWBKFT PO Last administered on 12/27/16 13:11; Start 12/27/16 at 08:00 Atorvastatin Calcium (Lipitor) 20 mg HS PO Last administered on 12/26/16 21:46 ; Start 12/26/16 at 21:00 Diazepam (Valium) 10 mg PRN BID PRN PO ANXIETY / AGITATION; Start 12/26/16 at 19:30 Fish Oil (Fish Oil) 1,000 mg BID PO Last administered on 12/27/16 13:10; Start 12/26/16 at 21:00 Temazepam (Restoril) 30 mg HS PRN PO INSOMNIA; Start 12/26/16 at 19:30 Vitamin D (Vitamin D3) 1,000 unit DAILY PO Last administered on 12/27/16 13:14 ; Start 12/27/16 at 09:00 Fenofibrate (Lofibra) 134 mg DAILY PO Last administered on 12/27/16 13:10; Start 12/27/16 at 09:00 Metoprolol Tartrate (Lopressor) 12.5 mg BID PO Last administered on 12/27/16 13:10; Start 12/26/16 at 21:00 Hydralazine HCl (Apresoline) 10 mg PRN Q4HRS PRN IVP ELEVATED BP, SEE COMMENTS ; Start 12/26/16 at 19:30 Enoxaparin Sodium (Lovenox 40mg Syringe) 40 mg Q24H SQ Last administered on 21:49; Start 12/26/16 at 21:00 Famotidine (Pepcid) 20 mg BID PO Last administered on 12/27/16 13:11; Start at 21:00 Regadenoson (Lexiscan) 0.4 mg 1X ONCE IV Last administered on 12/27/16 12:22 ; Start 12/27/16 at 10:15; Stop 12/27/16 at 10:16; Status DC Active Scripts Active Reported Valium (Diazepam) 10 Mg Tablet 10 Mg PO BID PRN Temazepam 30 Mg Capsule 30 Mg PO HS PRN Atorvastatin Calcium 20 Mg Tablet 20 Mg PO HS Pv Fish Oil 1,000 Mg Softgel ([place]-3 Fatty Acids/Vitamin E) 1,000 Mg Capsule 1 Cap PO BID Vitamin D (Cholecalciferol (Vitamin D3)) 1,000 Unit Capsule 1 Cap PO DAILY Aspir 81 (Aspirin) 81 Mg Tablet.dr 1 Tab PO DAILY Fenofibrate (Fenofibrate Nanocrystallized) 145 Mg Tablet 1 Tab PO DAILY Vitals/I & O Vital Sign - Last 24 Hours 12/26/16 12/26/16 12/26/16 12/26/16 19:50 19:59 21:48 23:10 Temp 97.3 97.7 97.3 97.7 Pulse 83 92 74 Resp 16 18 B/P (MAP) 166/92 (116) 166/92 133/83 (100) Pulse Ox 93 94 O2 Delivery Room Air Room Air Room Air 12/27/16 12/27/16 12/27/16 12/27/16 03:04 07:00 08:00 08:46 Temp 97.6 97.8 97.6 97.8 Pulse 72 79 75 Resp 16 18 B/P (MAP) 130/79 (96) 146/85 (105) 138/79 (98) Pulse Ox 96 98 O2 Delivery Room Air Room Air Room Air 12/27/16 12/27/16 12/27/16 11:00 13:10 15:00 Temp 98.0 98.2 98.0 98.2 Pulse 78 78 86 Resp 18 20 B/P (MAP) 140/85 (103) 140/85 125/79 (94) Pulse Ox 95 95 O2 Delivery Room Air Room Air Intake and Output 12/26/16 12/26/16 12/27/16 15:00 23:00 07:00 Intake Total 2400 ml 600 ml Balance 2400 ml 600 ml ALINA WOODY MD Dec 27, 2016 17:33
--- NOTE | 2016-12-27 17:38 | CARD ---
APPROVED REPORT EXAM: Two-dimensional and M-mode echocardiogram with Doppler and color Doppler. Other Information Quality : Average Rhythm : NSR INDICATION Near syncope 2D DIMENSIONS Left Atrium(2D)4.8 (1.6-4.0cm)IVSd1.2 (0.7-1.1cm) Aortic Root(2D)3.9 (2.0-3.7cm)LVDd6.1 (3.9-5.9cm) LVOT Diameter2.6 (1.8-2.4cm)PWd1.2 (0.7-1.1cm) LVDs2.9 (2.5-4.0cm)FS (%) 53.3 % SV156.3 ml Aortic Valve AoV Peak Angel.261.8cm/sAoV VTI42.0cm AO Peak GR.27.4mmHgLVOT Peak Angel.130.5cm/s LVOT VTI 23.47cmAO Mean GR.15mmHg ANGELA (VMAX)2.33zg8JTW (VTI)2.87cm2 AI P 1/2 Afva354hq Mitral Valve MV E Tqjknhrj65.6cm/sMV DECEL QCRN303eb MV A Uguepacm675.2cm/sMV IYC50hq E/A Ratio0.8MV A Iairxyrn313ye MVA (PHT)2.69cm2 TDI E/Lateral E'11.8E/Medial E'9.8 Tricuspid Valve TR P. Flkzshhu187tg/sRAP ZLYOAHPI7hdPy TR Peak Gr.60hcFrGEQN42smTg LEFT VENTRICLE The Left Ventricle is borderline dilated. There is borderline concentric left ventricular hypertrophy . Left ventricle systolic function is hyperdynamic. The Ejection Fraction is >70%. There is normal LV segmental wall motion. Tissue Doppler imaging reveals mild left ventricular diastolic dysfunction. T ransmitral Doppler flow pattern is Grade I-abnormal relaxation pattern. There is no ventricular septa l defect visualized. RIGHT VENTRICLE The right ventricle is normal size. The right ventricular systolic function is normal. ATRIA The left atrium is mildly dilated. The right atrium size is normal. The interatrial septum is intact with no evidence for an atrial septal defect or patent foramen ovale as noted on 2-D or Doppler imagi ng. AORTIC VALVE The right coronary cusp is mildly calcifed. The non coronary cusp is moderately calcified and appears fixed. Doppler and Color Flow revealed moderate to severe aortic regurgitation on a technically diff icult study. There is no significant aortic valvular stenosis. MITRAL VALVE Mitral annular calcification is mild. The anterior mitral valve leaflet appears thickened, but opens well. There is no mitral valve stenosis. Doppler and Color Flow revealed mild mitral regurgitation. TRICUSPID VALVE The tricuspid valve is normal in structure and function. Doppler and Color Flow revealed mild tricusp id regurgitation. The PA pressure was estimated at 40 mmHg. There is no tricuspid valve stenosis. PULMONIC VALVE The pulmonic valve is not well visualized. Doppler and Color Flow revealed no pulmonic valvular regur gitation. There is no pulmonic valvular stenosis. GREAT VESSELS The aortic root is normal in size. Normal pulmonary venous flow (Doppler). The IVC is normal in size and collapses >50% with inspiration. PERICARDIAL EFFUSION There is no evidence of significant pericardial effusion. Critical Notification Physician Notified Date: 12/27/2016 Time: 15:12 Physician Name:Dr. Medina Critical Value: Yes <Conclusion> The Left Ventricle is borderline dilated. Left ventricle systolic function is hyperdynamic. The Ejection Fraction is >70%. There is borderline concentric left ventricular hypertrophy. There is no significant aortic valvular stenosis. Doppler and Color Flow revealed moderate to severe aortic regurgitation on a technically difficult st udy. Doppler and Color Flow revealed mild mitral regurgitation. Doppler and Color Flow revealed mild tricuspid regurgitation. The PA pressure was estimated at 40 mmHg.
[2016-12-27] MEDS: ENOXAPARIN 40 MG/0.4 ML SYRINGE. SQ SCH (21:37)
[2016-12-27] MEDS: ATORVASTATIN CALCIUM 20 MG TABLET PO SCH (21:38)
[2016-12-28 03:10] VITALS: BP 118/73
[2016-12-28 07:00] VITALS: BP 151/81
--- NOTE | 2016-12-28 08:26 | PDOC ---
Provider Note Provider Note 12/27/16 1700 TTE noted with moderate to severe AI with symptoms of dizziness. NAYANA recommended to further evaluate, discussed risks and benefits to pt and spouse and agreeable to proceed on 12/28/2016 DANUTA PARK APRN Dec 28, 2016 08:26
[2016-12-28] MEDS: METOPROLOL TART IMMED RELEASE 25 MG TABLET. PO SCH ×2 (08:48→21:50)
[2016-12-28] MEDS: FAMOTIDINE 20 MG TABLET. PO SCH ×2 (08:49→21:49)
[2016-12-28 11:00] VITALS: BP 144/73
[2016-12-28] MEDS ORDERED: LIDOCAINE 2% VISCOUS 15 ML SOLUTION. ONE (11:44)
[2016-12-28] MEDS ORDERED: BENZOCAINE ONE 20% MUCOSAL SPRAY. (11:45)
[2016-12-28] MEDS ORDERED: LIDOCAINE 2% TOPICAL JELLY 30GM TUBE. TP ONE (11:45)
[2016-12-28 15:00] VITALS: BP 175/80
[2016-12-28] MEDS: ASPIRIN ENTERIC COATED 81 MG TABLET.DR. PO SCH (15:35)
[2016-12-28] MEDS: FENOFIBRATE,MICRONIZED 134 MG CAPSULE PO SCH (15:35)
[2016-12-28] MEDS: OMEGA-3 FATTY ACIDS/FISH OIL 1,000 MG CAPSULE. PO SCH ×2 (15:35→21:49)
[2016-12-28] MEDS: CHOLECALCIFEROL (VITAMIN D3) 1,000 UNIT TABLET PO SCH (15:35)
--- NOTE | 2016-12-28 18:03 | PDOC ---
PROGRESS NOTES Chief Complaint Chief Complaint Near syncope ASSESSMENT AND PLAN: 1. CP/ near syncope: ruled out for ACS. MPI with EF 55%, mild inferior hypokinesis, moderate risk. echo showed moderate AR 2. HTN urgency: well controlled on lisinopril and HCTZ as per cards. monitor. 3. Prophylaxis: lovenox, H2B NAYANA TODAY, WAITING FOR RESULT. cont current meds. History of Present Illness History of Present Illness feels ok Vitals Vitals Vital Signs Date Time Temp Pulse Resp B/P (MAP) Pulse Ox O2 Delivery O2 Flow Rate FiO2 12/28/16 15:00 98.1 83 16 175/80 (111) 95 98.1 12/28/16 12:49 Room Air 12/28/16 12:19 5 Physical Exam General: Alert, Oriented X3, Cooperative, No acute distress Heart: Regular rate, Other (VICKI 2/6 systolic murmur) Lungs: Clear Abdomen: Normal bowel sounds, Soft, No tenderness, Other (massively obese) Extremities: No edema Skin: No rashes Review of Systems Review of Systems no fever, chills, sob, chest pain Assessment and Plan Assessmemt and Plan Problems Medical Problems: (1) Near syncope Status: Acute Problems: Comment Review of Relevant I have reviewed the following items meir (where applicable) has been applied. Labs Laboratory Tests Test 12/26/16 19:00 12/27/16 01:00 Troponin I Quantitative < 0.017 ng/mL (0.000-0.055) < 0.017 ng/mL (0.000-0.055) White Blood Count 5.0 x10^3/uL (4.0-11.0) Red Blood Count 4.96 x10^6/uL (4.30-5.70) Hemoglobin 16.1 g/dL (13.0-17.5) Hematocrit 47.0 % (39.0-53.0) Mean Corpuscular Volume 95 fL (79-100) Mean Corpuscular Hemoglobin 33 pg (25-35) Mean Corpuscular Hemoglobin Concent 34 g/dL (31-37) Red Cell Distribution Width 11.9 % (11.5-14.5) Platelet Count 125 x10^3/uL (140-400) Neutrophils (%) (Auto) 47 % (31-73) Lymphocytes (%) (Auto) 38 % (24-48) Monocytes (%) (Auto) 11 % (0-9) Eosinophils (%) (Auto) 3 % (0-3) Basophils (%) (Auto) 1 % (0-3) Neutrophils # (Auto) 2.4 x10^3uL (1.8-7.7) Lymphocytes # (Auto) 1.9 x10^3/uL (1.0-4.8) Monocytes # (Auto) 0.6 x10^3/uL (0.0-1.1) Eosinophils # (Auto) 0.1 x10^3/uL (0.0-0.7) Basophils # (Auto) 0.0 x10^3/uL (0.0-0.2) Sodium Level 138 mmol/L (136-145) Potassium Level 4.1 mmol/L (3.5-5.1) Chloride Level 103 mmol/L (98-107) Carbon Dioxide Level 30 mmol/L (21-32) Anion Gap 5 (6-14) Blood Urea Nitrogen 15 mg/dL (8-26) Creatinine 1.0 mg/dL (0.7-1.3) Estimated GFR (Cockcroft-Gault) 76.5 Glucose Level 99 mg/dL (70-99) Calcium Level 8.3 mg/dL (8.5-10.1) Triglycerides Level 344 mg/dL (0-150) Cholesterol Level 145 mg/dL (0-200) LDL Cholesterol, Calculated 32 mg/dL (0-100) VLDL Cholesterol, Calculated 69 mg/dL (0-40) Non-HDL Cholesterol Calculated 101 mg/dL (0-129) HDL Cholesterol 44 mg/dL (40-60) Cholesterol/HDL Ratio 3.3 Thyroid Stimulating Hormone (TSH) 4.353 uIU/mL (0.358-3.74) Medications Current Medications Ondansetron HCl (Zofran) 4 mg PRN Q8HRS PRN IV NAUSEA/VOMITING; Start 12/26/16 at 15:30; Stop 12/27/16 at 15:29; Status DC Acetaminophen (Tylenol) 650 mg PRN Q4HRS PRN PO FEVER Last administered on 12/26t 21:56; Start 12/26/16 at 15:30; Stop 12/27/16 at 15:29; Status DC Nitroglycerin (Nitrostat) 0.4 mg PRN Q5MIN PRN SL CHEST PAIN; Start 12/26/16 at 15:30; Stop 12/27/16 at 15:29; Status DC Aspirin (Ecotrin) 81 mg DAILYWBKFT PO Last administered on 12/28/16 15:35; Start 12/27/16 at 08:00 Atorvastatin Calcium (Lipitor) 20 mg HS PO Last administered on 12/27/16 21:38 ; Start 12/26/16 at 21:00 Diazepam (Valium) 10 mg PRN BID PRN PO ANXIETY / AGITATION; Start 12/26/16 at 19:30 Fish Oil (Fish Oil) 1,000 mg BID PO Last administered on 12/28/16 15:35; Start 12/26/16 at 21:00 Temazepam (Restoril) 30 mg HS PRN PO INSOMNIA Last administered on 12/27/16 22 :47; Start 12/26/16 at 19:30 Vitamin D (Vitamin D3) 1,000 unit DAILY PO Last administered on 12/28/16 15:35 ; Start 12/27/16 at 09:00 Fenofibrate (Lofibra) 134 mg DAILY PO Last administered on 12/28/16 15:35; Start 12/27/16 at 09:00 Metoprolol Tartrate (Lopressor) 12.5 mg BID PO Last administered on 12/28/16 08:48; Start 12/26/16 at 21:00 Hydralazine HCl (Apresoline) 10 mg PRN Q4HRS PRN IVP ELEVATED BP, SEE COMMENTS ; Start 12/26/16 at 19:30 Enoxaparin Sodium (Lovenox 40mg Syringe) 40 mg Q24H SQ Last administered on 21:37; Start 12/26/16 at 21:00 Famotidine (Pepcid) 20 mg BID PO Last administered on 12/28/16 08:49; Start at 21:00 Regadenoson (Lexiscan) 0.4 mg 1X ONCE IV Last administered on 12/27/16 12:22 ; Start 12/27/16 at 10:15; Stop 12/27/16 at 10:16; Status DC Lidocaine HCl (Viscous Lidocaine) 15 ml STK-MED ONCE .ROUTE ; Start 12/28/16 at 11:44; Stop 12/28/16 at 11:45; Status DC Benzocaine (Hurricaine One) 1 spray STK-MED ONCE .ROUTE ; Start 12/28/16 at 11: 45; Stop 12/28/16 at 11:46; Status DC Lidocaine HCl (Xylocaine 2% Topical 30gm Tube) 30 reyes STK-MED ONCE TP ; Start at 11:45; Stop 12/28/16 at 11:46; Status DC Active Scripts Active Reported Valium (Diazepam) 10 Mg Tablet 10 Mg PO BID PRN Temazepam 30 Mg Capsule 30 Mg PO HS PRN Atorvastatin Calcium 20 Mg Tablet 20 Mg PO HS Pv Fish Oil 1,000 Mg Softgel ([place]-3 Fatty Acids/Vitamin E) 1,000 Mg Capsule 1 Cap PO BID Vitamin D (Cholecalciferol (Vitamin D3)) 1,000 Unit Capsule 1 Cap PO DAILY Aspir 81 (Aspirin) 81 Mg Tablet.dr 1 Tab PO DAILY Fenofibrate (Fenofibrate Nanocrystallized) 145 Mg Tablet 1 Tab PO DAILY Vitals/I & O Vital Sign - Last 24 Hours 12/27/16 12/27/16 12/27/16 12/27/16 19:32 20:00 21:37 22:34 Temp 97.9 97.6 97.9 97.6 Pulse 85 85 78 Resp 18 18 B/P (MAP) 142/85 (104) 142/85 149/83 (105) Pulse Ox 92 95 O2 Delivery Room Air Room Air Room Air 12/28/16 12/28/16 12/28/16 12/28/16 03:10 07:00 08:00 08:48 Temp 97.4 97.8 97.4 97.8 Pulse 75 81 81 Resp 16 19 B/P (MAP) 118/73 (88) 151/81 (104) 151/81 Pulse Ox 93 94 O2 Delivery Room Air Room Air Room Air 12/28/16 12/28/16 12/28/16 12/28/16 11:00 11:54 12:19 12:34 Temp 97.7 97.9 98.1 97.6 97.7 97.9 98.1 97.6 Pulse 63 77 75 79 Resp 19 14 14 13 B/P (MAP) 144/73 (96) 141/83 102/53 113/60 Pulse Ox 95 98 96 95 O2 Delivery Room Air Nasal Cannula Nasal Cannula Room Air O2 Flow Rate 5 5 12/28/16 12/28/16 12:49 15:00 Temp 98.1 98.1 Pulse 66 83 Resp 16 16 B/P (MAP) 125/64 175/80 (111) Pulse Ox 96 95 O2 Delivery Room Air Intake and Output 12/27/16 12/27/16 12/28/16 15:00 23:00 07:00 Intake Total 740 ml 600 ml Balance 740 ml 600 ml JANEY BAIG MD Dec 28, 2016 18:03
[2016-12-28 19:20] VITALS: BP 149/92
[2016-12-28] MEDS: ATORVASTATIN CALCIUM 20 MG TABLET PO SCH (21:49)
[2016-12-28] MEDS: ENOXAPARIN 40 MG/0.4 ML SYRINGE. SQ SCH (21:52)
[2016-12-28 23:00] VITALS: BP 147/75
[2016-12-29 03:15] VITALS: BP 137/68
[2016-12-29 07:01] VITALS: BP 147/80
[2016-12-29] MEDS: FAMOTIDINE 20 MG TABLET. PO SCH (08:29)
[2016-12-29] MEDS: FENOFIBRATE,MICRONIZED 134 MG CAPSULE PO SCH (08:29)
[2016-12-29] MEDS: CHOLECALCIFEROL (VITAMIN D3) 1,000 UNIT TABLET PO SCH (08:29)
[2016-12-29] MEDS: ASPIRIN ENTERIC COATED 81 MG TABLET.DR. PO SCH (08:29)
[2016-12-29] MEDS: OMEGA-3 FATTY ACIDS/FISH OIL 1,000 MG CAPSULE. PO SCH (08:29)
[2016-12-29] MEDS: METOPROLOL TART IMMED RELEASE 25 MG TABLET. PO SCH (08:30)
[2016-12-29 11:00] VITALS: BP 129/68
--- NOTE | 2016-12-29 13:02 | PDOC ---
CARDIO Progress Notes Date and Time Date of Service 12/29/2016 Time of Evaluation 1140 Subjective Subjective: No Chest Pain, No shortness of breath, No Palpitations, No Dizziness Vitals Vitals Vital Signs Date Time Temp Pulse Resp B/P (MAP) Pulse Ox O2 Delivery O2 Flow Rate FiO2 12/29/16 11:00 97.9 70 19 129/68 (88) 95 Room Air 97.9 12/28/16 12:19 5 Weight Weight [ ] Input and Output Intake and Output Intake and Output 12/29/16 06:59 Intake Total 1200 ml Output Total 600 ml Balance 600 ml Intake Oral 1200 ml Output Urine Total 600 ml # Voids 3 Physical Exam HEENT: Neck Supple W Full Motion Chest: Symmetric LUNGS: Clear to Auscultation Heart: S1S2, RRR (SR) Abdomen: Soft N/T Extremities: No Edema, No Calf Tenderness Neurology: alert, oriented, follow commands Assessment Assessment 1. Atypical CP: MPI neg for reversible defects, possibly mild inferior hypokinesis. CP likely from tachycardia. 2. Tachyarrhythmia: Appears to be atrial flutter with RVR from last night. AI contributing 3. Moderate AI: per NAYANA 4. HTN: new 5. HLP 6. Obesity Recommendations 1. MCOT for 2 weeks then f/u 1 wk later 2. Dietary adjustment, dietitian consult. lifestyle modification exercise and wt loss. 3. Metoprolol 25 mg po bid. ECASA 325 mg po daily for now. Discussed with primary admitting officer. Will reevaluate need for NOAC as an outpt per MCOT result. 4. BP home monitoring discussed. DANUTA PARK APRN Dec 29, 2016 13:02
[2016-12-29] MEDS ORDERED: METO25TA4 PO (13:45)
--- NOTE | 2016-12-29 13:48 | PDOC3 ---
Discharge Summary [facility] Date of Admission: Dec 26, 2016 Discharge Date: Dec 29, 2016 Admitting Diagnosis 1. CP/ near syncope: ruled out for ACS. MPI with EF 55%, mild inferior hypokinesis, moderate risk. echo showed moderate AR 2. HTN urgency: well controlled on lisinopril and HCTZ as per cards. monitor. Problems: Final Diagnosis CONSULTS card Brief Hospital Course Mr. Toussaint is a 61 old m, COMes for near syncope, with tachycardia sometime. TTE and NAYANA showed moderate AR, EF 70%. dc pt with metoprolol 25mg bid, cont holter monitor for 2 weeks dc tiem 35min General: Alert, Oriented X3, Cooperative, No acute distress Heart: Regular rate, Other (VICKI 2/6 systolic murmur) Lungs: Clear Abdomen: Normal bowel sounds, Soft, No tenderness, Other (massively obese) Extremities: No edema Skin: No rashes Patient History: Cancer confirmed (situation) G8 BROTHER 33 FATHER 32 MOTHER Family history: Allergy 33 FATHER Family history: Angina (situation) 33 FATHER Family history: Cardiovascular disease (situation) 33 FATHER Family history: Diabetes mellitus (situation) G8 SISTER Family history: neoplasm - trachea/bronchus/lung (situation) 33 FATHER Family history: neoplasm - urinary organ (situation) 33 FATHER No Family History of: Family history: Alzheimer's disease (situation) Family history: Asthma Family history: Autoimmune disease (situation) Family history: Blood disorder (situation) Family history: Breast disease (situation) Family history: Cardiomyopathy (situation) Family history: Crohn's disease (situation) Family history: Depression (situation) Family history: Epilepsy (situation) Family history: Gallbladder disease (situation) Family history: Gastrointestinal disease (situation) Family history: Hemophilia (situation) Family history: Hypertension (situation) Family history: Obesity (situation) Family history: Schizophrenia (situation) Family history: Sickle cell trait (situation) Family history: Suicide (situation) Family history: neoplasm of skin (situation) Malignant hyperthermia Sleep apnea Problems: Disposition home CONDITION AT DISCHARGE: Improved Diet cardiac Scheduled Aspirin (Aspir 81), 1 TAB PO DAILY, (Reported) Atorvastatin Calcium (Atorvastatin Calcium), 20 MG PO HS, (Reported) Cholecalciferol (Vitamin D3) (Vitamin D), 1 CAP PO DAILY, (Reported) Fenofibrate Nanocrystallized (Fenofibrate), 1 TAB PO DAILY, (Reported) Metoprolol Tartrate (Metoprolol Tartrate), 25 MG PO BID [place]-3 Fatty Acids/Vitamin E (Pv Fish Oil 1,000 Mg Softgel), 1 CAP PO BID, ( Reported) Scheduled PRN Diazepam (Valium), 10 MG PO BID PRN for ANXIETY / AGITATION, (Reported) Temazepam (Temazepam), 30 MG PO HS PRN for INSOMNIA, (Reported) Discontinued Medications Atorvastatin Calcium (Lipitor), 1 TAB PO QHS, (Reported) Discontinued Reason: Prescription changed Temazepam (Temazepam), 1 CAP PO QHS, (Reported) Discontinued Reason: Prescription changed Follow Up card in 2 weeks JANEY BAIG MD Dec 29, 2016 13:48
[2016-12-29] MEDS ORDERED: METOPROLOL TART IMMED RELEASE 25 MG TABLET. PO SCH (21:00)
[2016-12-30] MEDS ORDERED: ASPIRIN ENTERIC COATED 325 MG TABLET.DR. PO SCH (08:00)
== END 2016-12-29 14:45 | disposition home or self-care (01) | DRG 312 ==
LOC: ER 13:12 → 2 NORTH 15:18
PROVIDERS: ADMIT Internal Medicine Hematology & Oncology; ATTEND Internal Medicine Hematology & Oncology
DX: R55 Syncope and collapse (principal); I48.92 Unspecified atrial flutter; E78.00 Pure hypercholesterolemia, unspecified; E78.5 Hyperlipidemia, unspecified; F41.0 Panic disorder [episodic paroxysmal anxiety]; I10 Essential (primary) hypertension; I16.0 Hypertensive urgency; Z82.49 Family history of ischemic heart disease and other diseases of the circulatory system; Z96.653 Presence of artificial knee joint, bilateral; K57.90 Diverticulosis of intestine, part unspecified, without perforation or abscess without bleeding; M19.90 Unspecified osteoarthritis, unspecified site; E66.9 Obesity, unspecified; Z68.36 Body mass index [BMI] 36.0-36.9, adult; I35.1 Nonrheumatic aortic (valve) insufficiency; Z81.8 Family history of other mental and behavioral disorders; Z82.0 Family history of epilepsy and other diseases of the nervous system; Z82.5 Family history of asthma and other chronic lower respiratory diseases; Z83.3 Family history of diabetes mellitus; R07.89 Other chest pain; Z80.1 Family history of malignant neoplasm of trachea, bronchus and lung; Z80.59 Family history of malignant neoplasm of other urinary tract organ; Z71.89 Other specified counseling
CPT/HCPCS: 36415; 70450; 71010; 78452; 80048; 80053; 80061; 81001; 83880; 84443; 84484; 85027; 93005; 93017; 93306; 93312; 93325; 96374; 96375; 96376; A9500; G0481; J1650; J2785; 99285-25

== ENCOUNTER 2018-12-24 16:18 | Emergency (ER) | payer BC ==
[~2018-12-24] VITALS: Ht 180.3 cm; Wt 112.5 kg
[~2018-12-24 16:18] MED LIST changes: +ATOR20TA58 PO; +DIAZ10TA2 PO; -FENO145T2 PO; +FENO145T30 PO; +METO25TA4 PO; +TEMA30CA PO
[2018-12-24] MEDS ORDERED: ASPIRIN CHEWABLE 81 MG TABLET. PO ONE (16:45)
[2018-12-24 16:48] LABS: BASO % 0 % (0-3); EOS # 0.1 x10^3/uL (0.0-0.7); EOS % 2 % (0-3); HEMATOCRIT 43.4 % (39.0-53.0); HEMOGLOBIN 15.4 g/dL (13.0-17.5); LYMPH % 41 % (24-48); MEAN CORPUSCULAR HEMOGLOBIN 32 pg (25-35); MEAN CORPUSCULAR HGB CONC 36 g/dL (31-37); MEAN CORPUSCULAR VOLUME 90 fL (79-100); MONO # 0.6 x10^3/uL (0.0-1.1); MONO % 12 % (0-9); NEUT # 2.2 x10^3uL (1.8-7.7); NEUT % 45 % (31-73); PLATELET COUNT 122 x10^3/uL (140-400); RED BLOOD COUNT 4.81 x10^6/uL (4.30-5.70); RED CELL DISTRIBUTION WIDTH 11.4 % (11.5-14.5); WHITE BLOOD COUNT 4.9 x10^3/uL (4.0-11.0)
--- NOTE | 2018-12-24 16:50 | PHYS DOC ---
Past Medical History Past Medical History: Anxiety, High Cholesterol, Hypertension Past Surgical History: Knee Replacement, Other Additional Past Surgical Histo: umbilical hernia Alcohol Use: None Additional Information: SOBER X 2 MONTHS Drug Use: None Adult General Chief Complaint Chief Complaint: Palpitations HPI HPI Patient is a 63 year old male who presents with complaining of skipping heartbeats. Patient states he had 2 episodes of left arm stabbing pain for 1 second that resolved spontaneously. Patient states he had feeling of skipping heart beat with left side of jaw pain prior to arrival to ER with facial flushing and redness, shortness of breath, dizziness without chest pain, fever and chills, nausea and vomiting, focal neuro deficit. Patient states he was not sure if he had a panic attack or something he is strongly with his heart. Patient stopped drinking daily alcohol on October 13 and denies smoking cigarettes and using drugs. Review of Systems Review of Systems Constitutional: Denies fever or chills [] Eyes: Denies change in visual acuity, redness, or eye pain [] HENT: Denies nasal congestion or sore throat [] Respiratory: Denies cough , shortness of breath [] Cardiovascular: No additional information not addressed in HPI [] GI: Denies abdominal pain, nausea, vomiting, bloody stools or diarrhea [] : Denies dysuria or hematuria [] Musculoskeletal: Denies back pain or joint pain [] Integument: Denies rash or skin lesions [] Neurologic: Denies headache, focal weakness or sensory changes [] Endocrine: Denies polyuria or polydipsia [] All other systems were reviewed and found to be within normal limits, except as documented in this note. Current Medications Current Medications Current Medications Medications (Trade) Dose Ordered Sig/[facility] Start Time Stop Time Status Last Admin Dose Admin Aspirin (Children'S Aspirin) 324 mg 1X ONCE 12/24/18 16:45 12/24/18 16:46 DC 12/24/18 16:46 324 MG Allergies Allergies Allergies Coded Allergies Type Severity Reaction Last Updated Verified No Known Drug Allergies 04/16/14 No Physical Exam Physical Exam Constitutional: Well developed, well nourished, mild istress, non-toxic appearance. [] HENT: Normocephalic, atraumatic, oropharynx moist. Eyes: PERRLA, EOMI, conjunctiva normal, no discharge. [] Neck: Normal range of motion, no tenderness, supple, no stridor. [] Cardiovascular:Heart rate regular rhythm, no murmur [] Lungs & Thorax: Bilateral breath sounds clear to auscultation [] Abdomen: Bowel sounds normal, soft, no tenderness, no masses, no pulsatile masses. [] Skin: Warm, dry, no erythema, no rash. [] Back: No tenderness, no CVA tenderness. [] Extremities: No tenderness, no cyanosis, no clubbing, ROM intact, no edema. [] Neurologic: Alert and oriented X 3, normal motor function, normal sensory function, no focal deficits noted. [] Psychologic: Affect anxious, judgement normal, mood normal. [] Current Patient Data Vital Signs Vital Signs Date Time Temp Pulse Resp B/P (MAP) Pulse Ox O2 Delivery O2 Flow Rate FiO2 12/24/18 16:34 97.9 69 18 155/76 (102) 98 Room Air 97.9 Lab Values Laboratory Tests Test 12/24/18 16:37 White Blood Count 4.9 x10^3/uL (4.0-11.0) Red Blood Count 4.81 x10^6/uL (4.30-5.70) Hemoglobin 15.4 g/dL (13.0-17.5) Hematocrit 43.4 % (39.0-53.0) Mean Corpuscular Volume 90 fL (79-100) Mean Corpuscular Hemoglobin 32 pg (25-35) Mean Corpuscular Hemoglobin Concent 36 g/dL (31-37) Red Cell Distribution Width 11.4 % (11.5-14.5) L Platelet Count 122 x10^3/uL (140-400) L Neutrophils (%) (Auto) 45 % (31-73) Lymphocytes (%) (Auto) 41 % (24-48) Monocytes (%) (Auto) 12 % (0-9) H Eosinophils (%) (Auto) 2 % (0-3) Basophils (%) (Auto) 0 % (0-3) Neutrophils # (Auto) 2.2 x10^3uL (1.8-7.7) Lymphocytes # (Auto) 2.0 x10^3/uL (1.0-4.8) Monocytes # (Auto) 0.6 x10^3/uL (0.0-1.1) Eosinophils # (Auto) 0.1 x10^3/uL (0.0-0.7) Basophils # (Auto) 0.0 x10^3/uL (0.0-0.2) Sodium Level 137 mmol/L (136-145) Potassium Level 3.6 mmol/L (3.5-5.1) Chloride Level 101 mmol/L (98-107) Carbon Dioxide Level 25 mmol/L (21-32) Anion Gap 11 (6-14) Blood Urea Nitrogen 16 mg/dL (8-26) Creatinine 0.9 mg/dL (0.7-1.3) Estimated GFR (Cockcroft-Gault) 85.8 BUN/Creatinine Ratio 18 (6-20) Glucose Level 115 mg/dL (70-99) H Calcium Level 9.5 mg/dL (8.5-10.1) Magnesium Level 2.0 mg/dL (1.8-2.4) Total Bilirubin 0.9 mg/dL (0.2-1.0) Aspartate Amino Transferase (AST) 34 U/L (15-37) Alanine Aminotransferase (ALT) 48 U/L (16-63) Alkaline Phosphatase 48 U/L (46-116) Creatine Kinase 104 U/L (39-308) Troponin I Quantitative < 0.017 ng/mL (0.000-0.055) AA-Xiq-S-Type Natriuretic Peptide 78 pg/mL (0-124) Total Protein 7.9 g/dL (6.4-8.2) Albumin 4.7 g/dL (3.4-5.0) Albumin/Globulin Ratio 1.5 (1.0-1.7) Lipase 146 U/L (73-393) Laboratory Tests 12/24/18 16:37 Laboratory Tests 12/24/18 16:37 EKG EKG EKG interpreted by me. EKG at 1626 showed normal sinus rhythm at rate of 75, PVCs, left arias axis, right bundle branch block, poor R-wave progress in inferior leads, no acute ST and T-wave abnormalities. Radiology/Procedures Radiology/Procedures [facility] [address] [place] [address] IMAGING REPORT Signed PATIENT: RHEA OLGUIN ACCOUNT: [id number] : 1955 LOCATION: ER AGE: 63 SEX: M EXAM STATUS: REG ER ORD. PHYSICIAN: LIOR WILHELM MD REASON: palpitation PROCEDURE: PORTABLE CHEST 1V AP chest. HISTORY: Palpitations AP view was taken of the chest. Lungs are clear. Heart is normal in size. There is no pleural effusion. There is a granuloma on the right. IMPRESSION: 1. No acute chest disease. Electronically signed by: Mino Carlos MD (12/24/2018 4:56 PM) [facility] DICTATED and SIGNED BY: MINO CARLOS MD DATE: 12/24/181655 Course & Med Decision Making Course & Med Decision Making Pertinent Labs and Imaging studies reviewed. (See chart for details) discharge: I've spoken with the patient and/or caregivers. I've explained the patient's condition, diagnosis and treatment plan based on information available to me at this time. I've answered the patient's and/or caregivers questions and addressed any concerns. The patient and/or caregivers have a good understanding the patient's diagnosis, condition and treatment plan as can be expected at this point. Vital signs have been stabilized. The patient's condition is stable for discharge from the emergency department. The patient will pursue further outpatient evaluation with her primary care provider or other designated consulting physician as outlined in the discharge instructions. Patient and/or caregivers are agreeable to this plan of care and follow-up instructions have been explained in detail. The patient and/or caregivers have received these instructions in written format and expressed understanding of these discharge instructions. The patient and her caregivers are aware that if any significant change in condition or worsening of symptoms should prompt him to immediately return to this of the closest emergency depa rtment. If an emergent department is not readily available I would encourage him to call 911. Nicole Disclaimer Dragon Disclaimer This electronic medical record was generated, in whole or in part, using a voice recognition dictation system. Departure Departure Impression: Primary Impression: Panic attack Additional Impression: Palpitation Disposition: HOME, SELF-CARE (at 1743) Condition: IMPROVED Referrals: CELESTINA THOMASON DO (PCP) Patient Instructions: Anxiety and Panic Attacks, Palpitations Additional Instructions: Drink plenty of liquids Follow-up with your primary care physician in 2-3 days Return to ER if not getting better The HEART Score for CP Pts HEART Score for Chest Pain: HEART Score for Chest Pain Response (Comments) Value History Slighlty/Non-Suspicious 0 ECG Nonspecific Repolarizatio 1 Age >45 - < 65 1 Risk Factors 1 or 2 Risk Factors 1 Troponin < Normal Limit 0 Total 3 Risk Factors: Risk Factors: DM, Current or recent (<one month) smoker, HTN, HLP, family history of CAD, obesity. Risk Scores: Score 0 - 3: 2.5% MACE over next 6 weeks - Discharge Home Score 4 - 6: 20.3% MACE over next 6 weeks - Admit for Clinical Observation Score 7 - 10: 72.7% MACE over next 6 weeks - Early Invasive Strategies Problem Qualifiers LIOR WILHELM MD Dec 24, 2018 16:50
--- NOTE | 2018-12-24 16:59 | RAD ---
AP chest. HISTORY: Palpitations AP view was taken of the chest. Lungs are clear. Heart is normal in size. There is no pleural effusion. There is a granuloma on the right. IMPRESSION: 1. No acute chest disease. Electronically signed by: Mino Carlos MD (12/24/2018 4:56 PM) [facility]
[2018-12-24 17:10] LABS: CALCIUM 9.5 mg/dL (8.5-10.1); CREATININE 0.9 mg/dL (0.7-1.3); GFR 85.8; POTASSIUM 3.6 mmol/L (3.5-5.1)
[2018-12-24 17:17] LABS: ALBUMIN 4.7 g/dL (3.4-5.0); ALBUMIN/GLOBULIN RATIO 1.5 (1.0-1.7); TOTAL BILIRUBIN 0.9 mg/dL (0.2-1.0); TOTAL PROTEIN 7.9 g/dL (6.4-8.2)
[2018-12-24 17:30] VITALS: BP 102/59
--- NOTE | 2018-12-25 06:12 | EKG ---
[facility] [address] [place] [address] Test Date: 2018-12-24 Test Time: 16:26:38 Pat Name: RHEA OLGUIN Department: Room: Gender: M Process Architect: JACK : 1955 Requested By: LIOR WILHELM Order Number: [id number] Reading MD: Measurements Intervals [place] Rate: 75 P: 28 MT: 194 QRS: -26 QRSD: 132 T: -8 QT: 394 QTc: 443 Interpretive Statements SINUS RHYTHM ATRIAL PREMATURE COMPLEX(ES) LEFTWARD AXIS RIGHT BUNDLE BRANCH BLOCK QRS(T) CONTOUR ABNORMALITY CONSIDER INFERIOR INFARCT ABNORMAL ECG RI6.01 Unconfirmed report No previous ECG available for comparison
== END 2018-12-24 18:01 | disposition home or self-care (01) ==
LOC: ER 16:18
DX: R00.2 Palpitations (principal); F41.0 Panic disorder [episodic paroxysmal anxiety]; R42 Dizziness and giddiness; R06.02 Shortness of breath; E78.00 Pure hypercholesterolemia, unspecified; I10 Essential (primary) hypertension; R11.2 Nausea with vomiting, unspecified
CPT/HCPCS: 36415; 71045; 80053; 82550; 83690; 83735; 83880; 84484; 85025; 93005; 99285-25